=== PATIENT | female | born 1965 | race Caucasian/White ===

== ENCOUNTER 2021-09-07 23:26 | Emergency (ER) | payer SELFPAY ==
[2021-09-07] MEDS ORDERED: Sodium Chloride 0.9% 1,000 ML IV ONE (23:53)
[2021-09-08] MEDS ORDERED: Ondansetron 4 MG/2 ML SDV IVPUSH ONE (00:10)
[2021-09-08 00:41] LABS: ESTIMATED GFR 52 mL/min (>60)
[2021-09-08] MEDS ORDERED: HYDROmorphone 0.5 MG/0.5 ML Syringe IVPUSH ONE (01:21)
[2021-09-08] MEDS ORDERED: Amoxicillin/Clavulanate K 875-125 MG Tab PO STA (01:42)
[2021-09-08] MEDS ORDERED: Lidocaine 1% with EPINEPHrine 1:100,000 10 ML MDV INJECT ONE (01:47)
[2021-09-08] MEDS ORDERED: Bupivacaine 0.5% 10 ML SDV INJECT ONE (01:47)
[2021-09-08] MEDS ORDERED: Lidocaine 1% with EPINEPHrine 1:100,000 20 ML MDV INJECT ONE (01:52)
== END 2021-09-08 02:45 | disposition home or self-care (01) ==
LOC: JD.ED 23:26
DX: S02.40CA Maxillary fracture, right side, initial encounter for closed fracture (principal); S02.40EA Zygomatic fracture, right side, initial encounter for closed fracture; R55 Syncope and collapse; R42 Dizziness and giddiness; F17.210 Nicotine dependence, cigarettes, uncomplicated; Z28.310 Unvaccinated for COVID-19; Z88.5 Allergy status to narcotic agent
CPT/HCPCS: 12011; 36415; 70450; 70486; 72126; 80053; 83735; 84484; 85025; 93005; 96361; 96374; 96375; 99285; A9270; J1170; J2405; J3490; J7030